=== PATIENT | female | born 1945 | race Two or more races ===

== ENCOUNTER 2020-03-04 12:19 | Inpatient (IN) | payer OTHER ==
[~2020-03-04] VITALS: Ht 160 cm; Wt 49.9 kg
--- NOTE | 2020-03-04 12:41 | NUR ---
PACIENTE REFERIDO POR POR ULCERA EN EL PIERNA IZQUIERDA.SE NATALIA SIGNOS VITALES Y SE UBICA EN EL AREA DE OBSERVACIONES.
[2020-03-04] MEDS ORDERED: FORTAMET1000 MG (12:44)
--- NOTE | 2020-03-04 15:27 | NUR ---
SE EDUCA A PTE SOBRE TX MEDICO ESTA REFIERE ENTENDER. SE NATALIA MEUSTRAS DE LAB UTILIZANDO MEDIDAS ASEPTICAS, SE COLOCA H/L A PTE EL CUAL SE ENCUENTRA PATENTE Y ALEXANDRA DE EDEMA. SE NOTIFICA ESTUDIO PENDIENTE A REALIZAR, SE OBSERVA BENDAJE EN ROSANA RT, PTE REFIERE LA DEBRIDARON HOY.
[2020-03-13] MEDS ORDERED: MINOCYCLINE HC100 M1 PO (10:02)
== END 2020-03-13 10:52 | disposition home or self-care (01) | DRG 623 ==
LOC: ER 12:19 → SEC-K 21:34 → MEDJ 03-06 16:33 → MEDI 03-06 16:33
PROVIDERS: ADMIT Internal Medicine; ATTEND Internal Medicine
PROC: B44HZZZ Ultrasonography of Bilateral Lower Extremity Arteries (ICD-10-PCS; principal; 2020-03-05)
PROC: 0JBP0ZZ Excision of Left Lower Leg Subcutaneous Tissue and Fascia, Open Approach (ICD-10-PCS; 2020-03-10)
DX: E11.622 Type 2 diabetes mellitus with other skin ulcer (principal); L03.116 Cellulitis of left lower limb; L97.828 Non-pressure chronic ulcer of other part of left lower leg with other specified severity; E11.628 Type 2 diabetes mellitus with other skin complications; I10 Essential (primary) hypertension; I77.89 Other specified disorders of arteries and arterioles; B96.29 Other Escherichia coli [E. coli] as the cause of diseases classified elsewhere; B95.61 Methicillin susceptible Staphylococcus aureus infection as the cause of diseases classified elsewhere; Z20.828 Contact with and (suspected) exposure to other viral communicable diseases; Z79.899 Other long term (current) drug therapy